=== PATIENT | female | born 1990 | race Caucasian/White ===

== ENCOUNTER 2018-02-16 19:56 | Emergency (ER) | payer BC ==
[2018-02-16] MEDS ORDERED: SODIUM CHLORIDE 0.9% 1,000 ML IV ONE (20:42)
[2018-02-16] MEDS ORDERED: METOCLOPRAMIDE 10 MG/2 ML VIAL IVP STA (20:42)
[2018-02-16 21:21] LABS: BASOPHILS % (AUTO) 0.4 %; EOSINOPHILS # (AUTO) 0.1 10^3/uL (0.0-0.7); EOSINOPHILS % (AUTO) 0.7 %; HGB - HEMOGLOBIN 14.5 g/dL (12.0-16.0); LYMPHOCYTES # (AUTO) 1.3 10^3/uL (1.5-3.5); LYMPHOCYTES % (AUTO) 13.2 %; MEAN CORPUSCULAR HEMOGLOBIN 31.6 pg (27.0-31.0); MEAN CORPUSCULAR HGB CONC 34.5 g/dL (32.0-36.0); MEAN CORPUSCULAR VOLUME 91.6 fL (81.0-99.0); MEAN PLATELET VOLUME 8.2 fL (7.9-10.8); MONOCYTES # (AUTO) 0.6 10^3/uL (0.0-1.0); MONOCYTES % (AUTO) 5.7 %; PLT - PLATELET COUNT 265 10^3/uL (130-450); RED CELL DISTRIBUTION WIDTH 12.9 % (12.0-15.0)
[2018-02-16 21:41] LABS: ALBUMIN 3.9 g/dL (3.2-5.5); ALBUMIN/GLOBULIN RATIO 1.3 (1.0-2.2); ALKALINE PHOSPHATASE 48 IU/L (42-121); ALT ALANINE AMINOTRANSFERASE 22 IU/L (10-60); AST ASPARTATE AMINOTRANSFERASE 29 IU/L (10-42); BILIRUBIN,TOTAL 2.2 mg/dL (0.2-1.0); BUN - BLOOD UREA NITROGEN 8 mg/dL (6-20); CALCIUM 9.1 mg/dL (8.5-10.3); CARBON DIOXIDE - CO2 23 mmol/L (21-32); CHLORIDE 102 mmol/L (101-111); CREATININE 0.5 mg/dL (0.4-1.0); GFR - MDRD 147 (>89); GLUCOSE 81 mg/dL (70-100); LIPASE 26 U/L (22-51); SODIUM 136 mmol/L (135-145); TOTAL PROTEIN 6.9 g/dL (6.7-8.2)
[2018-02-16 21:42] LABS: HCG,QUALITATIVE BLOOD NEGATIVE
[2018-02-16] MEDS ORDERED: FAMOTIDINE 20 MG in SODIUM CHLORIDE 0.9% 50 ML IV ONE (21:48)
[2018-02-16] MEDS ORDERED: ONDANSETRON 4 MG/2 ML VIAL IVP STA (21:48)
[2018-02-16] MEDS ORDERED: KETOROLAC 60 MG/2 ML VIAL IVP STA (21:48)
[2018-02-16 21:52] LABS: BILIRUBIN,URINE NEGATIVE (NEGATIVE); GLUCOSE, URINE (UA) NEGATIVE (NEGATIVE); KETONES,URINE (UA) 40 mg/dL (NEGATIVE); LEUKOCYTE ESTERASE, URINE TRACE (NEGATIVE); NITRITE,URINE NEGATIVE (NEGATIVE); OCCULT BLOOD,URINE NEGATIVE (NEGATIVE); PROTEIN,URINE TRACE mg/dL (NEGATIVE); UROBILINOGEN,URINE 0.2 (NORMAL) E.U./dL (NORMAL)
[2018-02-16 21:55] LABS: CLARITY,URINE CLEAR (CLEAR)
[2018-02-16 22:18] LABS: BACTERIA,URINE Moderate /HPF (None Seen); RBC,URINE 0-5 /HPF (0-5); SQUAMOUS EPITHELIAL CELL,UR MOD Squamous (<= Few)
--- NOTE | 2018-02-16 22:29 | ED Physician Documentation ---
History of Present Illness - Stated complaint Stated Complaint: ABD PX/NAUSEA - Chief complaint Chief Complaint: Abd Pain - History obtained from History obtained from: Patient - Additonal information Additional information: 27-year-old female presents the emergency department with lower abdominal cramping which started after multiple episodes of nausea and vomiting. The patient reports significant vomiting today and being unable to hydrate. The patient reports abdominal cramping with the vomiting. Presently the patient reports abdominal soreness but no focal area of pain. No fevers, chills, diarrhea or dysuria. Symptoms are described as moderate. No other associated symptoms. No relieving factors Review of Systems Constitutional: reports: Fatigue. denies: Fever Eyes: denies: Discharge Ears: denies: Ear pain Nose: denies: Congestion Throat: denies: Sore throat Cardiac: denies: Chest pain / pressure Respiratory: denies: Cough GI: reports: Abdominal Pain, Nausea, Vomiting. denies: Hematemesis, Bloody / black stool : denies: Dysuria, Vaginal bleeding Musculoskeletal: denies: Back pain Neurologic: denies: Generalized weakness Immunocompromised: denies: Chemotherapy PD PAST MEDICAL HISTORY - Past Medical History Past Medical History: No - Past Surgical History Past Surgical History: No - Present Medications Home Medications: Ambulatory Orders Medication Instructions Recorded Confirmed Norethindrone-E.estradiol-Iron 1 tab PO DAILY 02/16/18 02/16/18 [Junel Fe 1.5 mg-30 Mcg Tablet] Ondansetron Odt [Zofran] 4 mg TL Q6H PRN #30 tablet 02/16/18 - Allergies Allergies/Adverse Reactions: Allergies Allergy/AdvReac Type Severity Reaction Status Date / Time clofarabine [From Clolar] Allergy Hives Verified 02/16/18 20:17 - Social History Does the pt smoke?: No Smoking Status: Never smoker Does the pt drink ETOH?: Yes Does the pt have substance abuse?: No - Immunizations Immunizations are current?: Yes - POLST Patient has POLST: No PD ED PE NORMAL - General General: Alert and oriented X 3 - HEENT HEENT: Atraumatic, PERRL, EOMI, Ears normal - Cardiac Cardiac: RRR, Strong equal pulses - Respiratory Respiratory: No respiratory distress - Abdomen Abdomen: Normal bowel sounds, Soft. No: Non tender (Generalized tenderness, no rebound or peritoneal signs) - Derm Derm: Normal color - Neuro Neuro: Alert and oriented X 3, Normal speech - Psych Psych: Normal affect Results - Vitals Vitals: Vital Signs - 24 hr 02/16/18 02/16/18 02/16/18 20:12 21:23 22:00 Temperature 37 C Heart Rate 83 63 59 L Respiratory 16 16 16 Rate Blood Pressure 126/73 103/62 105/76 O2 Saturation 97 100 99 Oxygen O2 Source Room air - Labs Labs: Laboratory Tests 02/16/18 02/16/18 02/16/18 21:03 21:03 21:30 WBC 10.0 RBC 4.60 Hgb 14.5 Hct 42.1 MCV 91.6 MCH 31.6 H MCHC 34.5 RDW 12.9 Plt Count 265 MPV 8.2 Neut # (Auto) 8.0 H Lymph # (Auto) 1.3 L Kay # (Auto) 0.6 Eos # (Auto) 0.1 Baso # (Auto) 0.0 Absolute Nucleated RBC 0.00 Nucleated RBC % 0.0 Sodium 136 Potassium 3.4 L Chloride 102 Carbon Dioxide 23 Anion Gap 11.0 BUN 8 Creatinine 0.5 Estimated GFR (MDRD) 147 Glucose 81 Calcium 9.1 Total Bilirubin 2.2 H AST 29 ALT 22 Alkaline Phosphatase 48 Total Protein 6.9 Albumin 3.9 Globulin 3.0 Albumin/Globulin Ratio 1.3 Lipase 26 Serum HCG, Qual NEGATIVE Urine Color DARK YELLOW Urine Clarity CLEAR Urine pH 7.0 Ur Specific [place] 1.015 Urine Protein TRACE Urine Glucose (UA) NEGATIVE Urine Ketones 40 H Urine Occult Blood NEGATIVE Urine Nitrite NEGATIVE Urine Bilirubin NEGATIVE Urine Urobilinogen 0.2 (NORMAL) Ur Leukocyte Esterase TRACE H Urine RBC 0-5 Urine WBC 0-3 Ur Squamous Epith Cells MOD Squamous H Urine Bacteria Moderate H Ur Microscopic Review INDICATED Urine Culture Comments NOT INDICATED PD MEDICAL DECISION MAKING - ED course ED course: On reevaluation the patient is resting comfortably and has no abdominal pain on physical exam. The patient's workup does not show any significant lab abnormality. Currently, the patient's symptoms do not seem to represent ovarian torsion, appendicitis, bowel obstruction, acute cholecystitis or kidney stone. Presently, there is no indications for CT scan and the patient appears appropriate for discharge and ongoing outpatient management. I discussed with the patient warning signs for appendicitis and various other acute surgical intra-abdominal etiologies. I recommended close follow-up with primary care and advised returning to the emergency department immediately for any worsening or any concerns. - Sepsis Event Vital Signs: Vital Signs - 24 hr 02/16/18 02/16/18 02/16/18 20:12 21:23 22:00 Temperature 37 C Heart Rate 83 63 59 L Respiratory 16 16 16 Rate Blood Pressure 126/73 103/62 105/76 O2 Saturation 97 100 99 Oxygen O2 Source Room air Departure - Departure Disposition: 01 Home, Self Care Clinical Impression: Abdominal pain Qualifiers: Abdominal location: generalized Qualified Code(s): R10.84 - Generalized abdominal pain Nausea & vomiting Qualifiers: Vomiting type: unspecified Vomiting Intractability: non-intractable Qualified Code(s): R11.2 - Nausea with vomiting, unspecified Condition: Good Instructions: Abdominal Pain Prescriptions: Ondansetron Odt [Zofran] 4 mg TL Q6H PRN #30 tablet PRN Reason: Nausea / Vomiting Comments: Please follow-up with primary care for recheck. Please return to the emergency department immediately for worsening symptoms or any concerns
[2018-02-16 22:47] VITALS: BP 109/59
== END 2018-02-16 22:48 | disposition home or self-care (01) ==
LOC: ED 19:56
DX: R10.84 Generalized abdominal pain (principal); R11.2 Nausea with vomiting, unspecified
CPT/HCPCS: 36415; 80053; 81001; 83690; 84703; 85025; 96361; 96365; 96375; 99283; 99284; J2765; J7040; 81003; 87086